=== PATIENT | male | born 1955 | race Caucasian/White ===

== ENCOUNTER 2020-12-02 09:38 | Emergency (ER) | payer MEDICARE, OTHER ==
[~2020-12-02 09:38] MED LIST: ATIVAN1 MG PO; BREO ELLIPTA 11 EACH INH; CIPRO500 MG PO; CLEOCIN300 MG PO; LIPITOR20 MG PO; NORCO 5-325 TA1 EACH PO; OMEPRAZOLE40 MG PO; PRINIVIL10 MG PO; VENTOLIN HFA IN18 GM INH; ZOFRAN4 MG PO
== END 2020-12-02 11:30 | disposition home or self-care (01) ==
LOC: FER 09:38
DX: J06.9 Acute upper respiratory infection, unspecified (principal); I10 Essential (primary) hypertension; J45.909 Unspecified asthma, uncomplicated; Z20.822 Contact with and (suspected) exposure to COVID-19
CPT/HCPCS: 99283; U0002